=== PATIENT | male | born 1950 | race Caucasian/White ===

== ENCOUNTER 2020-11-29 14:03 | Inpatient (IN) | payer OTHER ==
[2020-11-29] MEDS ORDERED: ACETAMINOPHEN 1000 MG/100 ML VIAL (NON FORMULARY) IVPB ONE (15:11)
[2020-11-29] MEDS ORDERED: ACETAMINOPHEN INJECTION 100 ML IVPB ONE (15:44)
[2020-11-29 15:57] LABS: BASO % 0.8 % (0-2.0); EOS % 0.4 % (0-4.5); HEMATOCRIT 28.1 % (35.4-49); HEMOGLOBIN 9.4 GM/dL (11.7-16.9); LYMPH % 7.4 % (8-40); MCHC 33.6 g/dl (32.0-35.9); MEAN CELL VOLUME 107.4 fl (80-96); MEAN PLT VOLUME 9.5 fl (7.5-11.1); NEUT % 82.4 % (42.8-82.8); PLATELET COUNT 331 K/MM3 (134-434); RBC 2.62 M/mm3 (4.00-5.60); RDW 27.1 % (11.9-15.9); WHITE BLOOD COUNT 10.6 K/mm3 (4.0-10.0)
[2020-11-29 16:07] LABS: POTASSIUM 4.2 mmol/L (3.5-5.1)
[2020-11-29 16:08] LABS: INR 1.14 (0.83-1.09); PROTHROMBIN TIME (PATIENT) 13.7 SEC (9.7-13.0)
[2020-11-29 16:09] LABS: BLOOD UREA NITROGEN 16.6 mg/dL (7-18); CALCIUM 8.8 mg/dL (8.5-10.1)
[2020-11-29 16:11] LABS: ACTIVATED PTT 30.9 SECONDS (25.2-36.5)
[2020-11-29 16:12] LABS: CREATININE 0.6 mg/dL (0.55-1.3)
[2020-11-29 16:16] LABS: ANISOCYTOSIS 2+; PLATELET ESTIMATE NORMAL; TARGET CELLS 2+
[2020-11-29] MEDS ORDERED: ACETAMINOPHEN 1000 MG/100 ML VIAL (NON FORMULARY) IVPB PRN (20:00)
[2020-11-29] MEDS ORDERED: D5-1/2NS+20 MEQ KCL - 20 MEQ/1,000 ML INFUS.BAG IV SCH (20:30)
[2020-11-29] MEDS ORDERED: MELATONIN 5 MG TABLETS PO ONE (22:00)
[2020-11-29] MEDS ORDERED: MORPHINE SULFATE 2 MG/ML VIAL ONE (23:03)
[2020-11-29] MEDS ORDERED: MELATONIN 5 MG TABLETS ONE (23:03)
[2020-11-29] MEDS: MORPHINE SULFATE 2 MG/ML VIAL IVPUSH PRN (23:12)
[2020-11-29 23:49] LABS: RETICULOCYTES 2.17 % (0.5-1.5)
[2020-11-30] MEDS ORDERED: ASPIRIN COATED 81 MG TABLET.EC PO SCH (01:05)
[2020-11-30] MEDS ORDERED: ASPIRIN COATED 81 MG TABLET.EC PO ONE (01:05)
[2020-11-30] MEDS ORDERED: ASPIRIN COATED 81 MG TABLET.EC ONE (01:30)
[2020-11-30] MEDS ORDERED: MORPHINE SULFATE 2 MG/ML VIAL ONE (06:00)
[2020-11-30] MEDS: MORPHINE SULFATE 2 MG/ML VIAL IVPUSH PRN (06:05)
[2020-11-30 07:05] LABS: INR 1.18 (0.83-1.09); PROTHROMBIN TIME (PATIENT) 14.2 SEC (9.7-13.0)
[2020-11-30 07:08] LABS: ACTIVATED PTT 30.6 SECONDS (25.2-36.5)
[2020-11-30 07:14] LABS: BASO % 0.9 % (0-2.0); EOS % 0.7 % (0-4.5); HEMATOCRIT 27.2 % (35.4-49); HEMOGLOBIN 9.2 GM/dL (11.7-16.9); LYMPH % 12.8 % (8-40); MCH 35.8 pg (25.7-33.7); MCHC 33.9 g/dl (32.0-35.9); MEAN CELL VOLUME 105.6 fl (80-96); MEAN PLT VOLUME 8.6 fl (7.5-11.1); NEUT % 75.6 % (42.8-82.8); PLATELET COUNT 293 K/MM3 (134-434); RBC 2.58 M/mm3 (4.00-5.60); RDW 27.1 % (11.9-15.9); WHITE BLOOD COUNT 8.1 K/mm3 (4.0-10.0)
[2020-11-30 07:21] LABS: POTASSIUM 4.2 mmol/L (3.5-5.1)
[2020-11-30 07:29] LABS: PHOSPHOROUS 3.4 mg/dL (2.5-4.9)
[2020-11-30 07:30] LABS: ALBUMIN 3.7 g/dl (3.4-5.0); BLOOD UREA NITROGEN 15.2 mg/dL (7-18)
[2020-11-30 07:31] LABS: BILIRUBIN,TOTAL 1.6 mg/dL (0.2-1)
[2020-11-30 07:32] LABS: CALCIUM 8.6 mg/dL (8.5-10.1)
[2020-11-30 07:33] LABS: CREATININE 0.5 mg/dL (0.55-1.3); MAGNESIUM 2.2 mg/dL (1.8-2.4)
[2020-11-30] MEDS ORDERED: PROPOFOL 20 ML ONE (12:31)
[2020-11-30] MEDS ORDERED: MIDAZOLAM HCL 2 MG/2 ML SINGLE DOSE VIAL ONE ×2 (12:32→12:56)
[2020-11-30] MEDS ORDERED: ceFAZolin SODIUM 1 GM VIAL IVPB ONE (12:48)
[2020-11-30] MEDS ORDERED: ONDANSETRON 4 MG/2 ML VIAL IVPUSH PRN (14:05)
[2020-11-30] MEDS ORDERED: ACETAMINOPHEN 1000 MG/100 ML VIAL (NON FORMULARY) IVPB ONE (17:00)
[2020-11-30] MEDS ORDERED: HYDROmorphone HCL CARPU-JECT 2 MG/1 ML DISP.SYRIN IVPUSH ONE ×2 (17:10→17:30)
[2020-11-30] MEDS ORDERED: ACETAMINOPHEN INJECTION 100 ML IVPB ONE (17:14)
[2020-11-30] MEDS ORDERED: HYDROmorphone HCl 2 MG/ML VIAL IVPUSH PRN (17:18)
[2020-11-30] MEDS ORDERED: HYDROmorphone HCl 2 MG/ML VIAL ONE (17:19)
[2020-11-30] MEDS: D5-1/2NS+20 MEQ KCL - 20 MEQ/1,000 ML INFUS.BAG IV SCH (18:30)
[2020-11-30 18:41] VITALS: BMI 28.6
[2020-11-30] MEDS: oxyCODONE HCL 5 MG TABLET PO PRN (20:06)
[2020-12-01] MEDS: oxyCODONE HCL 5 MG TABLET PO PRN (02:21)
[2020-12-01] MEDS: MORPHINE SULFATE 2 MG/ML VIAL IVPUSH PRN (06:34)
[2020-12-01] MEDS: ACETAMINOPHEN 1000 MG/100 ML VIAL (NON FORMULARY) IVPB PRN ×2 (08:39→14:47)
[2020-12-01] MEDS ORDERED: DOCUSATE SODIUM 100 MG CAPSULE (FP) PO PRN (09:30)
[2020-12-01 09:34] LABS: BASO % 1.2 % (0-2.0); EOS % 0.4 % (0-4.5); HEMATOCRIT 23.3 % (35.4-49); HEMOGLOBIN 7.8 GM/dL (11.7-16.9); LYMPH % 8.9 % (8-40); MCH 35.2 pg (25.7-33.7); MCHC 33.3 g/dl (32.0-35.9); MEAN CELL VOLUME 105.7 fl (80-96); MEAN PLT VOLUME 9.8 fl (7.5-11.1); MONO % 9.3 % (3.8-10.2); NEUT % 80.2 % (42.8-82.8); PLATELET COUNT 315 K/MM3 (134-434); RBC 2.21 M/mm3 (4.00-5.60); RDW 26.9 % (11.9-15.9); WHITE BLOOD COUNT 9.4 K/mm3 (4.0-10.0)
[2020-12-01] MEDS: LOSARTAN POTASSIUM 50 MG TABLET PO SCH (09:43)
[2020-12-01 10:01] LABS: POTASSIUM 4.3 mmol/L (3.5-5.1)
[2020-12-01 10:03] LABS: BLOOD UREA NITROGEN 11.7 mg/dL (7-18); CALCIUM 8.3 mg/dL (8.5-10.1)
[2020-12-01 10:07] LABS: CREATININE 0.5 mg/dL (0.55-1.3)
[2020-12-01] MEDS: SENNOSIDES 8.6MG TABLET (FP) PO SCH (21:42)
[2020-12-02 08:30] LABS: BASO % 1.3 % (0-2.0); EOS % 0.6 % (0-4.5); HEMATOCRIT 21.3 % (35.4-49); HEMOGLOBIN 7.3 GM/dL (11.7-16.9); LYMPH % 12.4 % (8-40); MCH 36.3 pg (25.7-33.7); MCHC 34.6 g/dl (32.0-35.9); MEAN PLT VOLUME 9.7 fl (7.5-11.1); MONO % 9.8 % (3.8-10.2); NEUT % 75.9 % (42.8-82.8); PLATELET COUNT 374 K/MM3 (134-434); RBC 2.03 M/mm3 (4.00-5.60); RDW 26.4 % (11.9-15.9); WHITE BLOOD COUNT 9.9 K/mm3 (4.0-10.0)
[2020-12-02 08:43] LABS: CALCIUM 8.3 mg/dL (8.5-10.1)
[2020-12-02 08:44] LABS: ALBUMIN 3.4 g/dl (3.4-5.0); BLOOD UREA NITROGEN 11.6 mg/dL (7-18)
[2020-12-02 08:47] LABS: CREATININE 0.5 mg/dL (0.55-1.3); PHOSPHOROUS 2.7 mg/dL (2.5-4.9)
[2020-12-02 08:49] LABS: BILIRUBIN,TOTAL 1.6 mg/dL (0.2-1); TOT PROT 5.8 g/dl (6.4-8.2)
[2020-12-02] MEDS: LOSARTAN POTASSIUM 50 MG TABLET PO SCH (09:12)
[2020-12-02 10:15] LABS: BILIRUBIN,DIRECT 0.5 mg/dL (0.0-0.2)
[2020-12-02] MEDS ORDERED: POLYETHYLENE GLYCOL 3350 119 GM BTL PO ONE (12:09)
[2020-12-02 13:57] LABS: ANISOCYTOSIS 2+; MACROCYTOSIS 2+; OVALOCYTE 1+; PLATELET ESTIMATE NORMAL; TEAR DROP CELLS 1+
[2020-12-02] MEDS: D5-1/2NS+20 MEQ KCL - 20 MEQ/1,000 ML INFUS.BAG IV SCH (14:14)
[2020-12-02] MEDS: SENNOSIDES 8.6MG TABLET (FP) PO SCH (21:45)
[2020-12-02] MEDS: MORPHINE SULFATE 2 MG/ML VIAL IVPUSH PRN (21:46)
[2020-12-03] MEDS: LOSARTAN POTASSIUM 50 MG TABLET PO SCH (10:15)
[2020-12-03 10:24] LABS: PH,URINE 7.5 (5.0-8.0); URINE APPEARANCE CLOUDY; URINE BILIRUBIN NEGATIVE (NEGATIVE); URINE COLOR YELLOW; URINE GLUCOSE (UA) NEGATIVE (NEGATIVE); URINE KETONE NEGATIVE (NEGATIVE); URINE LEUK ESTERASE NEGATIVE (NEGATIVE); URINE NITRITE NEGATIVE (NEGATIVE); URINE PROTEIN TRACE (NEGATIVE)
[2020-12-03 11:30] LABS: BASO % 1.5 % (0-2.0); EOS % 0.8 % (0-4.5); HEMATOCRIT 23.6 % (35.4-49); HEMOGLOBIN 7.8 GM/dL (11.7-16.9); LYMPH % 16.4 % (8-40); MCH 35.4 pg (25.7-33.7); MCHC 33.3 g/dl (32.0-35.9); MEAN CELL VOLUME 106.4 fl (80-96); MEAN PLT VOLUME 9.6 fl (7.5-11.1); MONO % 7.3 % (3.8-10.2); PLATELET COUNT 494 K/MM3 (134-434); RBC 2.22 M/mm3 (4.00-5.60); RDW 27.2 % (11.9-15.9); WHITE BLOOD COUNT 12.2 K/mm3 (4.0-10.0)
[2020-12-03 11:51] LABS: POTASSIUM 3.9 mmol/L (3.5-5.1)
[2020-12-03 11:53] LABS: CALCIUM 8.8 mg/dL (8.5-10.1)
[2020-12-03 11:54] LABS: BLOOD UREA NITROGEN 13.8 mg/dL (7-18); MAGNESIUM 2.3 mg/dL (1.8-2.4)
[2020-12-03 11:55] LABS: ALBUMIN 3.4 g/dl (3.4-5.0)
[2020-12-03 11:57] LABS: CREATININE 0.6 mg/dL (0.55-1.3)
[2020-12-03 11:58] LABS: BILIRUBIN,DIRECT 0.3 mg/dL (0.0-0.2)
[2020-12-03 12:00] LABS: TOT PROT 6.3 g/dl (6.4-8.2)
[2020-12-03 12:12] LABS: MACROCYTOSIS 1+; OVALOCYTE 1+; PLATELET ESTIMATE INCREASED; TEAR DROP CELLS 1+
[2020-12-03] MEDS: D5-1/2NS+20 MEQ KCL - 20 MEQ/1,000 ML INFUS.BAG IV SCH (15:23)
[2020-12-03] MEDS: ACETAMINOPHEN 500 MG TABLET (FP) PO PRN (18:39)
[2020-12-03] MEDS: SENNOSIDES 8.6MG TABLET (FP) PO SCH (21:49)
[2020-12-04 08:41] LABS: BASO % 1.9 % (0-2.0); EOS % 1.2 % (0-4.5); HEMATOCRIT 21.8 % (35.4-49); HEMOGLOBIN 7.2 GM/dL (11.7-16.9); LYMPH % 19.4 % (8-40); MCH 35.3 pg (25.7-33.7); MCHC 33.2 g/dl (32.0-35.9); MEAN CELL VOLUME 106.3 fl (80-96); MEAN PLT VOLUME 9.2 fl (7.5-11.1); MONO % 7.3 % (3.8-10.2); NEUT % 70.2 % (42.8-82.8); PLATELET COUNT 411 K/MM3 (134-434); RBC 2.05 M/mm3 (4.00-5.60); RDW 26.1 % (11.9-15.9); WHITE BLOOD COUNT 8.6 K/mm3 (4.0-10.0)
[2020-12-04 08:56] LABS: POTASSIUM 3.8 mmol/L (3.5-5.1)
[2020-12-04 09:02] LABS: ALBUMIN 3.2 g/dl (3.4-5.0); BLOOD UREA NITROGEN 13.8 mg/dL (7-18); CALCIUM 8.5 mg/dL (8.5-10.1); MAGNESIUM 2.1 mg/dL (1.8-2.4)
[2020-12-04 09:05] LABS: CREATININE 0.6 mg/dL (0.55-1.3); PHOSPHOROUS 3.9 mg/dL (2.5-4.9)
[2020-12-04 09:06] LABS: BILIRUBIN,TOTAL 1.4 mg/dL (0.2-1)
[2020-12-04 09:07] LABS: TOT PROT 5.8 g/dl (6.4-8.2)
[2020-12-04] MEDS: LOSARTAN POTASSIUM 50 MG TABLET PO SCH (10:43)
[2020-12-04] MEDS: ACETAMINOPHEN 500 MG TABLET (FP) PO PRN (14:28)
[2020-12-04] MEDS: D5-1/2NS+20 MEQ KCL - 20 MEQ/1,000 ML INFUS.BAG IV SCH (19:35)
[2020-12-04] MEDS: SENNOSIDES 8.6MG TABLET (FP) PO SCH (22:31)
[2020-12-05] MEDS ORDERED: MELATONIN 5 MG TABLETS PO ONE ×2 (01:31→02:45)
[2020-12-05] MEDS ORDERED: MELATONIN 5 MG TABLETS ONE (02:41)
[2020-12-05 10:56] LABS: BASO % 2.2 % (0-2.0); EOS % 1.2 % (0-4.5); HEMATOCRIT 26.6 % (35.4-49); HEMOGLOBIN 8.9 GM/dL (11.7-16.9); LYMPH % 20.7 % (8-40); MCH 34.5 pg (25.7-33.7); MCHC 33.4 g/dl (32.0-35.9); MEAN CELL VOLUME 103.3 fl (80-96); MEAN PLT VOLUME 9.4 fl (7.5-11.1); MONO % 7.8 % (3.8-10.2); NEUT % 68.1 % (42.8-82.8); PLATELET COUNT 467 K/MM3 (134-434); RBC 2.58 M/mm3 (4.00-5.60); RDW 26.5 % (11.9-15.9); WHITE BLOOD COUNT 7.6 K/mm3 (4.0-10.0)
[2020-12-05 11:17] LABS: POTASSIUM 4.1 mmol/L (3.5-5.1)
[2020-12-05 11:30] LABS: BLOOD UREA NITROGEN 13.8 mg/dL (7-18); CALCIUM 8.8 mg/dL (8.5-10.1)
[2020-12-05 11:31] LABS: ALBUMIN 3.3 g/dl (3.4-5.0); MAGNESIUM 2.2 mg/dL (1.8-2.4)
[2020-12-05 11:34] LABS: CREATININE 0.6 mg/dL (0.55-1.3)
[2020-12-05 11:35] LABS: BILIRUBIN,TOTAL 2.5 mg/dL (0.2-1)
[2020-12-05 11:36] LABS: TOT PROT 5.8 g/dl (6.4-8.2)
[2020-12-05] MEDS: D5-1/2NS+20 MEQ KCL - 20 MEQ/1,000 ML INFUS.BAG IV SCH (21:34)
[2020-12-05] MEDS: SENNOSIDES 8.6MG TABLET (FP) PO SCH (21:35)
[2020-12-06] MEDS: LOSARTAN POTASSIUM 50 MG TABLET PO SCH ×2 (09:10→09:11)
[2020-12-06 10:52] LABS: EOS % 1.3 % (0-4.5); HEMATOCRIT 31.5 % (35.4-49); HEMOGLOBIN 10.4 GM/dL (11.7-16.9); LYMPH % 18.6 % (8-40); MEAN CELL VOLUME 102.8 fl (80-96); MEAN PLT VOLUME 9.4 fl (7.5-11.1); MONO % 7.7 % (3.8-10.2); NEUT % 70.4 % (42.8-82.8); PLATELET COUNT 672 K/MM3 (134-434); RBC 3.06 M/mm3 (4.00-5.60); RDW 26.5 % (11.9-15.9); WHITE BLOOD COUNT 10.9 K/mm3 (4.0-10.0)
[2020-12-06 11:52] VITALS: BP 125/77; PULSE 80; TEMP 98
[2020-12-06 14:20] LABS: ANISOCYTOSIS 2+; MACROCYTOSIS 2+
[2020-12-06 14:21] LABS: PLATELET ESTIMATE INCREASED; TARGET CELLS 1+; TEAR DROP CELLS 1+
[2020-12-06 14:22] LABS: OVALOCYTE 1+
== END 2020-12-06 12:40 | disposition home health service (06) | DRG 481 ==
LOC: JER 14:03 → JERBED 19:36 → J6S 11-30 18:16
PROVIDERS: ADMIT Hospitalist; ATTEND Student in an Organized Health Care Education/Training Program
PROC: 0QH734Z Insertion of Internal Fixation Device into Left Upper Femur, Percutaneous Approach (ICD-10-PCS; principal; 2020-11-30 12:00)
DX: S72.145A Nondisplaced intertrochanteric fracture of left femur, initial encounter for closed fracture (principal); D62 Acute posthemorrhagic anemia; I24.8 Other forms of acute ischemic heart disease; I11.9 Hypertensive heart disease without heart failure; I35.0 Nonrheumatic aortic (valve) stenosis; W19.XXXA Unspecified fall, initial encounter; Y93.9 Activity, unspecified; Y92.89 Other specified places as the place of occurrence of the external cause; Y99.9 Unspecified external cause status
CPT/HCPCS: 36415; 36430; 71045-TC-FY; 72192-TC; 73523-TC-FY; 76000-TC-FY; 76700-TC; 80048; 80053; 80061; 80076; 81003; 82248; 82272; 82607; 82728; 82746; 83010; 83036; 83540; 83550; 83615; 83721; 83735; 84100; 84443; 84484; 85025; 85045; 85610; 85730; 86850; 86900; 86901; 86922; 93005; 93010; 93306-TC; 94760; 97116-GP; 97162-GP; 99285-25; C9803; J0131; P9058; U0003

== ENCOUNTER 2022-05-14 13:14 | Inpatient (IN) | payer OTHER ==
[2022-05-14] MEDS ORDERED: ACETAMINOPHEN 1000 MG/100 ML BAG IVPB ONE (14:49)
[2022-05-14] MEDS ORDERED: LACTATED RINGERS SOLUTION 1000 ML INFUS.BAG IV ONE (15:52)
[2022-05-14] MEDS ORDERED: ACETAMINOPHEN INJECTION 100 ML IVPB ONE (16:06)
[2022-05-14] MEDS ORDERED: morphine CARPU-JECT 4 MG/1 ML DISP.SYRIN IVPUSH ONE (16:48)
[2022-05-14 17:07] LABS: BASO % 0.5 % (0-2.0); EOS % 0.3 % (0-4.5); HEMATOCRIT 33.6 % (35.4-49); LYMPH % 6.9 % (8-40); MCH 32.2 pg (25.7-33.7); MCHC 32.7 g/dl (32.0-35.9); MEAN CELL VOLUME 98.4 fl (80-96); NEUT % 85.3 % (42.8-82.8); PLATELET COUNT 305 10^3/uL (134-434); RBC 3.42 M/mm3 (4.00-5.60); RDW 23.8 % (11.9-15.9); WHITE BLOOD COUNT 18.4 K/mm3 (4.0-10.0)
[2022-05-14 17:16] LABS: INR 1.09 (0.83-1.09); PROTHROMBIN TIME (PATIENT) 12.5 SEC (9.7-13.0)
[2022-05-14 17:18] LABS: ACTIVATED PTT 27.8 SECONDS (25.2-36.5)
[2022-05-14] MEDS ORDERED: morphine SULFATE 4 MG/ML VIAL ONE (17:28)
[2022-05-14 17:44] LABS: ALBUMIN 4.2 g/dl (3.4-5.0); CALCIUM 9.8 mg/dL (8.5-10.1)
[2022-05-14 17:45] LABS: BLOOD UREA NITROGEN 22.4 mg/dL (7-18)
[2022-05-14 17:47] LABS: CREATININE 0.6 mg/dL (0.55-1.3)
[2022-05-14 17:49] LABS: BILIRUBIN,TOTAL 2.1 mg/dL (0.2-1); TOT PROT 6.8 g/dl (6.4-8.2)
[2022-05-14 18:32] LABS: ANISOCYTOSIS 2+; MACROCYTOSIS 0
[2022-05-14 18:45] LABS: PH,URINE 5.5 (5.0-8.0); URINE APPEARANCE CLEAR; URINE BILIRUBIN NEGATIVE (NEGATIVE); URINE COLOR YELLOW; URINE GLUCOSE (UA) 3+ (NEGATIVE); URINE KETONE 1+ (NEGATIVE); URINE LEUK ESTERASE NEGATIVE (NEGATIVE); URINE NITRITE NEGATIVE (NEGATIVE); URINE PROTEIN NEGATIVE (NEGATIVE); URINE UROBILINOGEN 0.2 mg/dL (0.2-1.0)
[2022-05-14] MEDS ORDERED: ACETAMINOPHEN 1000 MG/100 ML BAG IVPB PRN (22:53)
[2022-05-15] MEDS ORDERED: MELATONIN 5 MG TABLETS PO ONE (00:48)
[2022-05-15] MEDS ORDERED: traZODone HCL 50 MG TABLET (FP) PO ONE (00:48)
[2022-05-15 02:26] VITALS: BMI 25.2
[2022-05-15 08:26] LABS: BASO % 0.8 % (0-2.0); EOS % 0.5 % (0-4.5); HEMATOCRIT 30.1 % (35.4-49); LYMPH % 9.8 % (8-40); MCH 32.4 pg (25.7-33.7); MCHC 33.1 g/dl (32.0-35.9); MEAN PLT VOLUME 10.1 fl (7.5-11.1); MONO % 7.2 % (3.8-10.2); NEUT % 81.7 % (42.8-82.8); PLATELET COUNT 263 10^3/uL (134-434); RBC 3.07 M/mm3 (4.00-5.60); RDW 24.5 % (11.9-15.9); WHITE BLOOD COUNT 15.3 K/mm3 (4.0-10.0)
[2022-05-15] MEDS: ENOXAPARIN NA (PORCINE) 40 MG/0.4 ML DISP.SYRIN SQ SCH (09:55)
[2022-05-15] MEDS ORDERED: DOCUSATE SODIUM 100 MG CAPSULE (FP) PO ONE (11:18)
[2022-05-15] MEDS: INSULIN SLIDING SCALE (NOVOLOG) 1 VIAL SQ SCH ×3 (12:22→22:07)
[2022-05-15 13:20] LABS: ALBUMIN 3.8 g/dl (3.4-5.0); BLOOD UREA NITROGEN 20.5 mg/dL (7-18); CALCIUM 8.6 mg/dL (8.5-10.1); MAGNESIUM 2.3 mg/dL (1.8-2.4)
[2022-05-15 13:23] LABS: CREATININE 0.5 mg/dL (0.55-1.3); PHOSPHOROUS 4.2 mg/dL (2.5-4.9)
[2022-05-15 13:25] LABS: BILIRUBIN,TOTAL 1.8 mg/dL (0.2-1)
[2022-05-15] MEDS: oxyCODONE HCL 5 MG TABLET PO PRN (15:45)
[2022-05-15] MEDS ORDERED: SENNOSIDES 8.6MG TABLET (FP) PO SCH (22:00)
[2022-05-16] MEDS: oxyCODONE HCL 5 MG TABLET PO PRN (01:26)
[2022-05-16 01:53] VITALS: PULSE 97
[2022-05-16] MEDS: INSULIN SLIDING SCALE (NOVOLOG) 1 VIAL SQ SCH (06:30)
[2022-05-16 07:55] LABS: HEMATOCRIT 29.4 % (35.4-49); HEMOGLOBIN 9.7 GM/dL (11.7-16.9); MCH 32.4 pg (25.7-33.7); MEAN CELL VOLUME 98.2 fl (80-96); MEAN PLT VOLUME 9.5 fl (7.5-11.1); PLATELET COUNT 285 10^3/uL (134-434); RBC 2.99 M/mm3 (4.00-5.60); RDW 24.5 % (11.9-15.9); WHITE BLOOD COUNT 15.3 K/mm3 (4.0-10.0)
[2022-05-16 08:49] LABS: CALCIUM 8.4 mg/dL (8.5-10.1)
[2022-05-16 08:50] LABS: MAGNESIUM 2.3 mg/dL (1.8-2.4)
[2022-05-16 08:52] LABS: BLOOD UREA NITROGEN 26.1 mg/dL (7-18); CREATININE 0.4 mg/dL (0.55-1.3); TOT PROT 5.9 g/dl (6.4-8.2)
[2022-05-16 08:53] LABS: ALBUMIN 3.6 g/dl (3.4-5.0)
[2022-05-16 08:55] LABS: PHOSPHOROUS 3.2 mg/dL (2.5-4.9)
[2022-05-16 08:56] LABS: BILIRUBIN,TOTAL 1.4 mg/dL (0.2-1)
[2022-05-16] MEDS: ENOXAPARIN NA (PORCINE) 40 MG/0.4 ML DISP.SYRIN SQ SCH (10:28)
[2022-05-16 12:04] VITALS: BP 141/76; TEMP 97.8
== END 2022-05-16 14:35 | disposition home or self-care (01) | DRG 563 ==
LOC: JER 13:14 → JERBED 19:10 → OBSVTOIN 22:31 → J4W 05-15 00:14
PROVIDERS: ADMIT Hospitalist; ATTEND Internal Medicine
DX: S42.242A 4-part fracture of surgical neck of left humerus, initial encounter for closed fracture (principal); S42.255A Nondisplaced fracture of greater tuberosity of left humerus, initial encounter for closed fracture; R00.0 Tachycardia, unspecified; I10 Essential (primary) hypertension; I35.0 Nonrheumatic aortic (valve) stenosis; R73.9 Hyperglycemia, unspecified; V03.19XA Pedestrian with other conveyance injured in collision with car, pick-up truck or van in traffic accident, initial encounter; Y92.410 Unspecified street and highway as the place of occurrence of the external cause
CPT/HCPCS: 36415; 71045-TC-FY; 73030-TC-LT-FY; 80053; 80061; 81003; 82962; 83036; 83735; 84100; 84436; 84443; 84484; 85025; 85027; 85610; 85730; 86850; 86900; 86901; 87086; 93005; 93010; 93306-TC; 99285-25; C9803-CS; G0378; U0003; U0005

== ENCOUNTER 2024-01-30 13:34 | Emergency (ER) | payer OTHER ==
[2024-01-30 13:45] VITALS: BP 162/84; PULSE 89; RESP 16; TEMP 98.5; BMI 25.1
== END 2024-01-30 18:46 | disposition home or self-care (01) ==
LOC: JER 13:34 → JERFT 13:34
DX: S72.455A Nondisplaced supracondylar fracture without intracondylar extension of lower end of left femur, initial encounter for closed fracture (principal); W01.0XXA Fall on same level from slipping, tripping and stumbling without subsequent striking against object, initial encounter
CPT/HCPCS: 73552-TC-LT-FY; 73560-TC-LT-FY; 73700-TC-RT; 99284-25